=== PATIENT | female | born 1945 | race Caucasian/White ===

== ENCOUNTER 2018-09-16 08:04 | Outpatient (CLI) | payer MEDICARE ==
--- NOTE | 2018-09-16 09:32 | ULT ---
BILATERAL RENAL ULTRASOUND: Date: 09/16/18 HISTORY: Right-sided renal cell carcinoma. Status post right nephrectomy in 1993. TECHNIQUE: Multiplanar Frazier scale sonographic imaging of the kidneys and urinary bladder obtained. FINDINGS: The right renal fossa is unremarkable status post right-sided nephrectomy. The left kidney measures 1 1.6 x 5.3 cm, and demonstrates no evidence for stone, hydronephrosis, or mass. Urinary bladder is rolanda ssly unremarkable. IMPRESSION: 1. Status post right nephrectomy. 2. Unremarkable appearance of the left kidney and urinary bladder. POS: [facility]
== END 2018-09-16 08:05 | disposition home or self-care (01) ==
LOC: SCSULT 08:04
PROVIDERS: ATTEND Urology
DX: N28.1 Cyst of kidney, acquired (principal); Z90.5 Acquired absence of kidney
CPT/HCPCS: 76770

== ENCOUNTER 2018-09-18 08:13 | Outpatient (CLI) | payer MEDICARE | END 2018-09-18 08:14 | disposition home or self-care (01) | LOC: BICMAMMO 08:13 | PROVIDERS: ATTEND Family Medicine | DX: Z12.31 Encounter for screening mammogram for malignant neoplasm of breast (principal); N63.10 Unspecified lump in the right breast, unspecified quadrant; Z80.3 Family history of malignant neoplasm of breast | CPT/HCPCS: 77063; 77067 ==